=== PATIENT | female | born 1965 | race Hispanic/Latino ===

== ENCOUNTER 2019-06-23 19:36 | Emergency (ER) | payer SELFPAY ==
[2019-06-23 20:02] VITALS: TEMP 98.8
--- NOTE | 2019-06-23 20:39 | ED.PDOC ---
History of Present Illness - General Chief Complaint: Skin/Abrasion/Tear Stated Complaint: poss spider bite to LFA and L buttock Time Seen by Provider: 06/23/19 20:37 Source: patient, RN notes reviewed Additional Information: 54 YEAR OLD FEMALE HERE WITH NAUSEA VOMITING WEAKNESS ONSET TODAY SHE BELEIVES SHE WAS BITTEN BY SPIDER 3 DAYS AGO SHE HAS A LOCAL SKIN CHANGES REDNESS AND PUSTULAR AREA IN THE LEFT ELBOW AND LEFT BUTTOCKS PHYSICAL EXAM HER VITAL SIGNS ARE NORMAL SHE IS ACTIVELY VOMITING LEFT ELBOW THERE IS A LOCAL AREA OF CELLULITIS DOES NOT FLUCTUATE NOT FOR DRAINAGE TODAY LEFT LATERAL THIGH HIGH UP CLOSE TO THE GLUTEAL REGION THERE AGAIN AN AREA 2X1 CM RED INDURATED LESION NOT FLUCTUANT EITHER - History of Present Illness Timing/Duration: 24 hours Severity: moderate Improving Factors: nothing Worsening Factors: nothing Associated Symptoms: denies symptoms Allergies/Adverse Reactions: Allergies NO KNOWN ALLERGY Allergy (Verified 06/23/19 20:02) Home Medications: Ambulatory Orders Ondansetron Odt [Zofran ODT] 4 mg PO Q6HR #20 tab 06/23/19 Sulfa/Trimeth 800/160 (Ds) Tab [Bactrim DS Tab] 1 ea PO Q12HR #20 tab 06/23/19 Review of Systems - Review of Systems Constitutional: States: weakness EENTM: States: no symptoms reported Respiratory: States: no symptoms reported Cardiology: States: no symptoms reported Gastrointestinal/Abdominal: States: nausea, vomiting Genitourinary: States: no symptoms reported Musculoskeletal: States: no symptoms reported Skin: States: see HPI Neurological: States: no symptoms reported Endocrine: States: no symptoms reported Hematologic/Lymphatic: States: no symptoms reported Past Medical History (General) - Patient Medical History Hx Seizures: No Hx Stroke: No Hx Dementia: No Hx Asthma: No Hx of COPD: No Hx Cardiac Disorders: No Hx Congestive Heart Failure: Yes Hx Pacemaker: No Hx Hypertension: Yes Hx Thyroid Disease: No Hx Diabetes: Yes Hx Gastroesophageal Reflux: Yes Hx Renal Disease: No Hx Cancer: No Hx of HIV: No Hx Hepatitis C: No Hx MRSA: No - Vaccination History Hx Tetanus, Diphtheria Vaccination: Yes Hx Influenza Vaccination: No Hx Pneumococcal Vaccination: No - Social History Hx Tobacco Use: Yes Hx Alcohol Use: No Family Medical History - Family History Mother Family History: Unknown Physical Exam - Physical Exam General Appearance: Alert, Anxious, Other - CRYING Eye Exam: bilateral normal Ears, Nose, Throat: hearing grossly normal, normal ENT inspection, normal pharynx Neck: non-tender, full range of motion, supple Respiratory: chest non-tender, lungs clear, normal breath sounds, no respiratory distress, no accessory muscle use Cardiovascular/Chest: normal peripheral pulses, regular rate, rhythm, no edema, no gallop, no JVD, no murmur Gastrointestinal/Abdominal: normal bowel sounds, non tender, soft, no organ omegaly Back Exam: normal inspection, no CVA tenderness, no vertebral tenderness Extremity: normal range of motion, non-tender, normal inspection, other - PLEASE SEE HPI 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 Copy, Patient Portal Self Enrollment Instructions: DI for Abrasion Diet: resume usual diet Referrals: UNKNOWN,PHYSICIAN [Primary Care Provider] - 1-2 Weeks Prescriptions: Ondansetron Odt [Zofran ODT] 4 mg PO Q6HR #20 tab Sulfa/Trimeth 800/160 (Ds) Tab [Bactrim DS Tab] 1 ea PO Q12HR #20 tab Home Medications: Ambulatory Orders Ondansetron Odt [Zofran ODT] 4 mg PO Q6HR #20 tab 06/23/19 Sulfa/Trimeth 800/160 (Ds) Tab [Bactrim DS Tab] 1 ea PO Q12HR #20 tab 06/23/19
[2019-06-23] MEDS ORDERED: PROMETHAZINE HCL INJ 25 MG/ML VIAL IM ONE (20:42)
[2019-06-23] MEDS ORDERED: KETOROLAC TROMETHAMINE INJ 60 MG/2 ML VIAL IM ONE (20:42)
[2019-06-23 22:21] VITALS: BP 146/83; O2SAT 97
== END 2019-06-23 22:48 | disposition home or self-care (01) ==
LOC: ER 19:36
DX: S50.362A Insect bite (nonvenomous) of left elbow, initial encounter (principal); S30.860A Insect bite (nonvenomous) of lower back and pelvis, initial encounter; L03.114 Cellulitis of left upper limb; R11.2 Nausea with vomiting, unspecified; I50.9 Heart failure, unspecified; I11.0 Hypertensive heart disease with heart failure; E11.9 Type 2 diabetes mellitus without complications; K21.9 Gastro-esophageal reflux disease without esophagitis; W57.XXXA Bitten or stung by nonvenomous insect and other nonvenomous arthropods, initial encounter; Y92.9 Unspecified place or not applicable; Z87.891 Personal history of nicotine dependence
CPT/HCPCS: 82948; J1885; J2550